=== PATIENT | male | born 1960 | race American Indian/Alaskan Native ===

== ENCOUNTER 2017-08-15 15:55 | Emergency (ER) | payer BC ==
[2017-08-15 16:41] LABS: ABS Basophils 0.1 10^3/ul (0-0.2); ABS Eosinophils 0.1 10^3/ul (0-0.6); ABS Lymphocytes 0.1 10^3/ul (1.0-4.8); ABS Neutrophils 11.8 10^3/ul (1.5-7.7); ABS Nucleated RBC 0 10^3/ul; Eosinophil % 0.4 % (0-6); Hematocrit 43 % (42-52); Lymphocyte % 1.1 % (25-47); Mean Corpuscular HGB Conc 33 g/dl (31-36); Mean Corpuscular Hemoglobin 26 pg (27-31); Mean Corpuscular Volume 80 fL (80-94); Mean Platelet Volume 9 um3 (7.4-10.4); Nucleated Red Blood Cells % 0.1; Platelet Count 201 10^3/ul (150-450); Red Blood Count 5.39 10^6/ul (4.0-5.4); Red Cell Distribution Width 15 % (10.5-15); White Blood Count 13.1 10^3/ul (3.5-10.8)
[2017-08-15 16:56] LABS: EGFR Non-African American 49.8 (>60)
[2017-08-15] MEDS ORDERED: NS 0.9% 1000 ML*IV.FLUID IV ONE (19:25)
[2017-08-15] MEDS ORDERED: Levofloxacin 750 MG IVPREMIX(* 750 MG/150 ML BAG IVPB ONE (19:28)
[2017-08-15] MEDS ORDERED: Acetaminophen TAB* 325 MG PO ONE (19:29)
[2017-08-15] MEDS ORDERED: Albuterol/Ipratropium NEB.SOL* Albuterol 2.5 MG/Ipratropium 0.5 MG 3 ML INH ONE (19:29)
[2017-08-15] MEDS ORDERED: Potassium Chlor TAB* 20 MEQ TAB.ER PO ONE (19:30)
[2017-08-15] MEDS: Albuterol 2.5 MG/3 ML NEB.SOL* (0.083%) INH SCH (19:55)
[2017-08-15 20:08] LABS: INR 1.15 (0.77-1.02)
--- NOTE | 2017-08-15 20:41 | RAD ---
INDICATION: Shortness of breath. COMPARISON: Most recent comparison chest x-rays April 07, 2018 TECHNIQUE: Single AP portable view of the chest was obtained. FINDINGS: Image quality is compromised due to the relative inferiority of a portable chest x-ray. The heart and mediastinum exhibit normal size and contour. There is a mild degree of peribronchial cuffing. The lungs are grossly clear. There is no evidence of a large pleural effusion. Visualized bones are normal for the patient's age. IMPRESSION: Peribronchial cuffing could BE seen in the setting of viral pneumonia or inflammatory lung disease.
[2017-08-15 21:31] VITALS: BP 107/58
--- NOTE | 2017-08-15 21:41 | ED ---
Sandor Lorenzo Thomas, scribed for Mike Stoddard MD on 08/15/17 at 1942 . Influenza-Like Illness - HPI Summary HPI Summary: The patient is a 57 year old male complaining of chills that began today at 11: 00. He has been dealing with nasal congestion for the last few days. The patient denies shortness of breath and loss of consciousness. Past medical history includes asthma and he is on Flovent. - History of Current Complaint Chief Complaint: EDDizziness Time Seen by Provider: 08/15/17 19:12 Hx Obtained From: Patient Onset/Duration: Lasting Hours - onset of chills today, Still Present Severity: Moderate Associated Signs & Symptoms: Fever, Nasal Congestion Related Hx: Possible Flu/Infectious Exposure - Allergy/Home Medications Allergies/Adverse Reactions: Allergies Allergy/AdvReac Type Severity Reaction Status Date / Time peanut oil Allergy Severe Anaphylatic Verified 08/15/17 19:39 Shock PMH/Surg Hx/FS Hx/Imm Hx Cardiovascular History: Reports: Hx Hypertension Respiratory History: Reports: Hx Asthma Infectious Disease History: No Infectious Disease History: Denies: History Other Infectious Disease, Traveled Outside the in Last 30 Days - Family History Known Family History: Positive: Hypertension Negative: Cardiac Disease, Diabetes - Social History Alcohol Use: Occasionally Hx Substance Use: No Substance Use Type: Reports: None Hx Tobacco Use: No Smoking Status (MU): Never Smoked Tobacco Have You Smoked in the Last Year: No Review of Systems Positive: Fever, Chills Positive: Nasal Discharge Neurological: Negative - LOC All Other Systems Reviewed And Are Negative: Yes Physical Exam - Summary Physical Exam Summary: VITAL SIGNS: Reviewed. GENERAL: Patient is a well-developed and nourished MALE who is lying comfortable in the stretcher. Patient is not in any acute respiratory distress. HEAD AND FACE: No signs of trauma. No ecchymosis, hematomas or skull depressions. No sinus tenderness. EYES: PERRLA, EOMI x 2, No injected conjunctiva, no nystagmus. EARS: Hearing grossly intact. Ear canals and tympanic membranes are within normal limits. MOUTH: Oropharynx within normal limits. NECK: Supple, trachea is midline, no adenopathy, no JVD, no carotid bruit, no c- spine tenderness, neck with full ROM. CHEST: Symmetric, no tenderness at palpation LUNGS: Decreased breaths sounds bilaterally. CVS: Regular rate and rhythm, S1 and S2 present, no murmurs or gallops appreciated. ABDOMEN: Soft, non-tender. No signs of distention. No rebound no guarding, and no masses palpated. Bowel sounds are normal. EXTREMITIES: FROM in all major joints, no edema, no cyanosis or clubbing. NEURO: Alert and oriented x 3. No acute neurological deficits. Speech is normal and follows commands. SKIN: Dry and warm Triage Information Reviewed: Yes Vital Signs On Initial Exam: Initial Vitals Temp Pulse Resp BP Pulse Ox 100.2 F 106 16 134/76 92 08/15/17 15:59 08/15/17 15:59 08/15/17 15:59 08/15/17 15:59 08/15/17 15:59 Vital Signs Reviewed: Yes Diagnostics - Vital Signs Vital Signs Temp Pulse Resp BP Pulse Ox 08/15/17 19:30 89 19 136/80 92 08/15/17 19:00 86 17 140/75 92 08/15/17 18:30 88 16 122/79 93 08/15/17 18:23 89 16 93 08/15/17 18:21 118/76 08/15/17 18:01 98.4 F 96 15 119/66 94 08/15/17 15:59 100.2 F 106 16 134/76 92 - Laboratory Lab Results: Lab Results 08/15/17 08/15/17 Range/Units 16:30 16:30 WBC 13.1 H (3.5-10.8) 10^3/ul RBC 5.39 (4.0-5.4) 10^6/ul Hgb 14.0 (14.0-18.0) g/dl Hct 43 (42-52) % MCV 80 (80-94) fL MCH 26 L (27-31) pg MCHC 33 (31-36) g/dl RDW 15 (10.5-15) % Plt Count 201 (150-450) 10^3/ul MPV 9 (7.4-10.4) um3 Neut % (Auto) 89.6 H (38-83) % Lymph % (Auto) 1.1 L (25-47) % [place] % (Auto) 7.9 (1-9) % Eos % (Auto) 0.4 (0-6) % Baso % (Auto) 1.0 (0-2) % Absolute Neuts (auto) 11.8 H (1.5-7.7) 10^3/ul Absolute Lymphs (auto) 0.1 L (1.0-4.8) 10^3/ul Absolute Monos (auto) 1.0 H (0-0.8) 10^3/ul Absolute Eos (auto) 0.1 (0-0.6) 10^3/ul Absolute Basos (auto) 0.1 (0-0.2) 10^3/ul Absolute Nucleated RBC 0 10^3/ul Nucleated RBC % 0.1 Sodium 138 (133-145) mmol/L Potassium 3.2 L (3.5-5.0) mmol/L Chloride 103 (101-111) mmol/L Carbon Dioxide 29 (22-32) mmol/L Anion Gap 6 (2-11) mmol/L BUN 16 (6-24) mg/dL Creatinine 1.45 H (0.67-1.17) mg/dL Est GFR ( Amer) 64.1 (>60) Est GFR (Non-Af Amer) 49.8 (>60) BUN/Creatinine Ratio 11.0 (8-20) Glucose 108 H (70-100) mg/dL Calcium 9.0 (8.6-10.3) mg/dL Total Bilirubin 0.80 (0.2-1.0) mg/dL AST 22 (13-39) U/L ALT 17 (7-52) U/L Alkaline Phosphatase 62 (34-104) U/L Troponin I 0.01 (<0.04) ng/mL Total Protein 7.5 (6.4-8.9) g/dL Albumin 4.1 (3.2-5.2) g/dL Globulin 3.4 (2-4) g/dL Albumin/Globulin Ratio 1.2 (1-3) Result Diagrams: 08/15/17 16:30 08/15/17 16:30 Lab Statement: Any lab studies that have been ordered have been reviewed, and results considered in the medical decision making process. - Radiology CXR Xray Interpretation: No Acute Changes - Peribronchial cuffing could BE seen in the setting of viral pneumonia or inflammatory lung disease. Dr. Stoddard has reviewed this report. Radiology Interpretation Completed By: Radiologist - EKG 16:01 Cardiac Rate: NL EKG Rhythm: Sinus Rhythm EKG Interpretation: Normal intervals, normal axis, no ischemic change. Flu Symptom Course/Dx - Course Assessment/Plan: The patient is a 57 year old male complaining of chills, nasal congestion, and fever. Bloodwork, EKG, and CXR were obtained. Influenza A and B are negative. The patient is diagnosed with asthma, viral syndrome, and bronchitis. Patient will be discharged home with primary care follow up. Patient is prescribed Levaquin and prednisone. - Diagnoses Provider Diagnoses: Asthma, Viral syndrome, Bronchitis Discharge - Discharge Plan Condition: Stable Disposition: HOME Prescriptions: Levofloxacin TAB* [Levaquin TAB*] 750 mg PO DAILY #7 tab predniSONE TAB* [Deltasone TAB*] 40 mg PO DAILY #10 tab Patient Education Materials: Asthma (ED), Acute Bronchitis (ED), Viral Syndrome (ED) Referrals: [facility] [place] [facility] [place]Outside] - 3 Days Additional Instructions: Follow up with your primary care physician in three days. If you do not have a primary care provider, you can use the [facility] [place] service to find one and make an appointment. Return to the emergency department for any new or worsening symptoms. The documentation as recorded by the Sandor olsen Thomas accurately reflects the service I personally performed and the decisions made by , Mike Stoddard MD.
[2017-08-15 21:44] LABS: Urine Appearance Cloudy; Urine Blood Negative (Negative); Urine Color Yellow; Urine Ketones Negative (Negative); Urine Protein Negative (Negative); Urine Specific Gravity 1.014 (1.010-1.030); Urine Urobilinogen Negative (Negative)
== END 2017-08-15 21:43 | disposition home or self-care (01) ==
LOC: ED 15:55
DX: J45.909 Unspecified asthma, uncomplicated (principal)
CPT/HCPCS: 36415; 71045; 80053; 81003; 83605; 84484; 85025; 85610; 87040; 87502; 93005; 94640; 96360; 96374; 99283; A9270-GY

== ENCOUNTER 2018-12-22 10:52 | Emergency (ER) | payer BC ==
[2018-12-22 11:38] VITALS: BP 139/91
--- NOTE | 2018-12-22 12:21 | UC ---
Throat Pain/Nasal Delio HPI - HPI Summary HPI Summary: 58 y/o male presents to the urgent care c/o sore throat since this morning. Pt is concerned about strep since he had it before. Pt states mild nasal congestion w/ clear nasal discharge, Pain w/ swallowing is 4/10. Pt denies fever , cough, SOB, chest pain, abdominal pain, N/V/D, YANES. He has not taken any medications to alleviate symptoms. - History of Current Complaint Chief Complaint: UCGeneralIllness Stated Complaint: SORE THROAT Time Seen by Provider: 12/22/18 12:18 Hx Obtained From: Patient Onset/Duration: Gradual Onset, Lasting Days - today, Still Present Severity: Mild Pain Intensity: 4 - sore throat Pain Scale Used: 0-10 Numeric Cough: None Associated Signs & Symptoms: Positive: Nasal Discharge - clear. Negative: Sinus Discomfort, Fever Related History: Seasonal Allergies - Epiglottits Risk Factors Epiglottis Risk Factors: Negative - Allergies/Home Medications Allergies/Adverse Reactions: Allergies Allergy/AdvReac Type Severity Reaction Status Date / Time peanut oil Allergy Severe Anaphylatic Verified 12/22/18 11:38 Shock Home Medications: Home Medications Amlodipine Besylate [Norvasc] 1 tab PO DAILY 12/22/18 [History Confirmed ] Hydrochlorothiazide TAB* [Hydrodiuril TAB*] 1 tab PO DAILY 12/22/18 [History Confirmed 12/22/18] Lisinopril 1 tab PO DAILY 12/22/18 [History Confirmed 12/22/18] PMH/Surg Hx/FS Hx/Imm Hx Previously Healthy: Yes Cardiovascular History: Hypertension Respiratory History: Asthma - Surgical History Surgical History: None - Family History Known Family History: Positive: Hypertension, Respiratory Disease - asthma Negative: Cardiac Disease, Diabetes - Social History Occupation: Employed Full-time Lives: With Family Alcohol Use: None Substance Use Type: None Smoking Status (MU): Never Smoked Tobacco Have You Smoked in the Last Year: No Review of Systems All Other Systems Reviewed And Are Negative: Yes Constitutional: Positive: Negative Skin: Positive: Negative Eyes: Positive: Negative ENT: Positive: Sore Throat, Nasal Discharge - clear, Sinus Congestion Respiratory: Positive: Negative Cardiovascular: Positive: Negative Gastrointestinal: Positive: Negative Genitourinary: Positive: Negative Motor: Positive: Negative Neurovascular: Positive: Negative Musculoskeletal: Positive: Negative Neurological: Positive: Negative Psychological: Positive: Negative Is Patient Immunocompromised?: No Physical Exam - Summary Physical Exam Summary: VITAL SIGNS: Reviewed. GENERAL: Patient is a well developed and nourished male who is sitting comfortable in the examining table. Patient is not in any acute respiratory distress. HEAD AND FACE: No signs of trauma. No ecchymosis, hematomas or skull depressions. No sinus tenderness. EYES: PERRLA, EOMI x 2, No injected conjunctiva, no nystagmus. No photophobia. EARS: Hearing grossly intact. Ear canals and tympanic membranes are within normal limits. MOUTH: Positive pharynx with mild erythema, no exudates, No B/L tonsillar enlargement , no exudate. Uvula in midline. edematous nasal mucosa w/ clear nasal discharge, clear PND NECK: Supple, trachea is midline, Positive anterior cervical lymphadenopathy, no JVD, no carotid bruit, no c-spine tenderness, neck with full ROM. No meningeal signs, no Kernig's or brudzinskis signs. CHEST: Symmetric, no tenderness at palpation LUNGS: Clear to auscultation bilaterally. No wheezing or crackles. CVS: Regular rate and rhythm, S1 and S2 present, no murmurs or gallops appreciated. ABDOMEN: Soft, non-tender. No signs of distention. No rebound no guarding, and no masses palpated. Bowel sounds are normal. EXTREMITIES: FROM in all major joints, no edema, no cyanosis or clubbing. NEURO: Alert and oriented x 3. No acute neurological deficits. Pt follows commands. SKIN: Dry and warm Triage Information Reviewed: Yes Vital Signs: Initial Vital Signs Temp 98 F 12/22/18 11:36 Pulse 88 12/22/18 11:36 Resp 20 12/22/18 11:36 BP 139/91 12/22/18 11:36 Pulse Ox 100 12/22/18 11:36 Throat Pain/Nasal Course/Dx - Course Course Of Treatment: 58 y/o male presents to the urgent care c/o sore throat since this morning. Pt is concerned about strep since he had it before. Pt states mild nasal congestion w/ clear nasal discharge, Pain w/ swallowing is 4/10. Pt denies fever , cough, SOB, chest pain, abdominal pain, N/V/D, YANES. He has not taken any medications to alleviate symptoms. Pt w/ pharyngitis on examination. Rapid strep ordered, result: negative. Viral pharyngitis.Pt Rx ibuprofen PO to alleviates symptoms of pain and swelling. Advised on hand washing to avoid spreading. Pt advised to rest, eat well and avoid strenuous exercise. If symptoms do not improve or worsen advised to return to the urgent care or f/u with PCP for further evaluation and treatment. Your BP is elevated today. please decrease salt in your diet, monitor BP and if it continues to be elevated please f/u with your PCP for further management. D/C instructions explained. Pt understood and agreed w/ plan of care. - Differential Dx/Diagnosis Differential Diagnosis/HQI/PQRI: Laryngitis, Mononucleosis, Otitis Media, Pharyngitis, Tonsillitis Provider Diagnosis: Acute viral pharyngitis, Uncontrolled hypertension Discharge - Sign-Out/Discharge Documenting (check all that apply): Patient Departure - D/C home All imaging exams completed and their final reports reviewed: No Studies - Discharge Plan Condition: Stable Disposition: HOME Patient Education Materials: Pharyngitis (ED) Forms: *Work Release Referrals: [facility] [place] [facility] [Outside] - 3 Days Additional Instructions: 1-Please take ibuprofen PO q6-8hrs prn as instructed after meals to alleviate pain and swelling. Increase fluid intake, eat well, rest and avoid strenuous exercise 2-If symptoms do not improve or worsen please return to the urgent care or f/u with your PCP for further evaluation and treatment. 3- Your BP is elevated today. please decrease salt in your diet, monitor BP and if it continues to be elevated please f/u with your PCP for further management. - Billing Disposition and Condition Condition: STABLE Disposition: Home
== END 2018-12-22 13:08 | disposition home or self-care (01) ==
LOC: UCEAST 10:52
DX: J02.8 Acute pharyngitis due to other specified organisms (principal); I10 Essential (primary) hypertension
CPT/HCPCS: 87651; 99211; G0463

== ENCOUNTER 2018-12-25 17:23 | Emergency (ER) | payer BC ==
[2018-12-25 18:04] VITALS: BP 141/90
[2018-12-25] MEDS ORDERED: Ipratropium 0.5MG/2.5ML NEB* 0.5 MG/2.5 ML NEB.SOLN INH ONE (18:46)
[2018-12-25] MEDS ORDERED: Albuterol 2.5 MG/3 ML NEB.SOL* (0.083%) INH ONE (18:46)
--- NOTE | 2018-12-25 18:47 | UC ---
Respiratory Complaint HPI - HPI Summary HPI Summary: 58 yo male with hx of asthma was seen at [place] 3 days ago diagnosed with pneumonia started on zithromax (today is day three) still with cough and dyspnea desires CXR no fever no CP - History of Current Complaint Chief Complaint: UCRespiratory Stated Complaint: WANTS CHEST X-RAY Time Seen by Provider: 12/25/18 18:12 Hx Obtained From: Patient Onset/Duration: Gradual Onset, Lasting Days Severity Initially: Mild Severity Currently: Moderate Pain Intensity: 0 Pain Scale Used: 0-10 Numeric Aggravating Factors: Exertion, Deep Breaths Alleviating Factors: Nothing Associated Signs And Symptoms: Positive: Dyspnea, Chills - Allergies/Home Medications Allergies/Adverse Reactions: Allergies Allergy/AdvReac Type Severity Reaction Status Date / Time peanut oil Allergy Severe Anaphylatic Verified 12/25/18 18:04 Shock Home Medications: Home Medications Aspirin TAB* [Aspirin 325 MG TAB*] 325 mg PO DAILY 12/25/18 [History Confirmed 12/25/18] Azithromycin TAB* [Zithromax TAB (Z-BRIANNE) 250 mg #6 tabs] 2 tab PO .TODAY, THEN 1 DAILY 12/25/18 [History Confirmed 12/25/18] Ibuprofen TAB* [Motrin TAB* 800 MG] 800 mg PO Q6H PRN 12/25/18 [History Confirmed 12/25/18] PMH/Surg Hx/FS Hx/Imm Hx Previously Healthy: Yes Endocrine History: Dyslipidemia Cardiovascular History: Cardiac Disease, Hypertension Respiratory History: Asthma, Pneumonia - Surgical History Surgical History: None - Family History Known Family History: Positive: Hypertension, Respiratory Disease - asthma Negative: Cardiac Disease, Diabetes - Social History Alcohol Use: None Substance Use Type: None Smoking Status (MU): Never Smoked Tobacco Have You Smoked in the Last Year: No Review of Systems All Other Systems Reviewed And Are Negative: Yes Constitutional: Positive: Chills, Fatigue Skin: Positive: Negative Eyes: Positive: Negative ENT: Positive: Negative Respiratory: Positive: Shortness Of Breath, Cough Cardiovascular: Positive: Negative Gastrointestinal: Positive: Negative Genitourinary: Positive: Negative Motor: Positive: Negative Neurovascular: Positive: Negative Musculoskeletal: Positive: Negative Neurological: Positive: Negative Psychological: Positive: Negative Physical Exam Triage Information Reviewed: Yes Appearance: Well-Appearing, No Pain Distress, Well-Nourished Vital Signs: Initial Vital Signs Temp 98.0 F 12/25/18 17:58 Pulse 90 12/25/18 17:58 Resp 24 12/25/18 17:58 BP 141/90 12/25/18 17:58 Pulse Ox 92 12/25/18 17:58 Vital Signs Reviewed: Yes Eyes: Positive: Conjunctiva Clear ENT: Positive: Hearing grossly normal. Negative: Nasal congestion, Nasal drainage, Trismus, Muffled voice, Hoarse voice, Uvula midline Neck: Positive: Supple, Nontender, No Lymphadenopathy Respiratory: Positive: Lungs clear, No respiratory distress, No accessory muscle use Cardiovascular: Positive: RRR, No Murmur Musculoskeletal: Positive: No Edema Neurological: Positive: Alert Psychological Exam: Normal Skin Exam: Normal Diagnostics - Radiology No standard instances Radiology Interpretation Completed By: ED Physician Summary of Radiographic Findings: LLL atelectasis Re-Evaluation - Re-Evaluation First Eval Re-Evaluation Time: 19:33 Change: Improved - lungs clear PEFR 250 (pre was 175), pulse ox 95% Respiratory Course/Dx - Differential Dx/Diagnosis Provider Diagnosis: Bronchitis Discharge - Sign-Out/Discharge Documenting (check all that apply): Patient Departure All imaging exams completed and their final reports reviewed: No - Discharge Plan Condition: Improved Disposition: HOME Patient Education Materials: Bronchospasm (ED) Additional Instructions: the official xr reading is pending your peak flow is lower than we would like to see I suggest you see your MD later this week you may need formal pulmonary function tests TO ER FOR NEW OR WORSENING SYMPTOMS - Billing Disposition and Condition Condition: IMPROVED Disposition: Home
[2018-12-25] MEDS ORDERED: predniSONE TAB* 20 MG PO ONE (19:36)
[2018-12-25] MEDS ORDERED: Albuterol HFA INHALER* 8 gm MDI INH ONE (19:36)
--- NOTE | 2018-12-26 12:31 | UC ---
- Progress Note Progress Note: chest xray report : IMPRESSION: NO EVIDENCE FOR ACTIVE CARDIOPULMONARY DISEASE. Course/Dx - Diagnoses Provider Diagnoses: Bronchitis Discharge - Sign-Out/Discharge Documenting (check all that apply): Patient Departure All imaging exams completed and their final reports reviewed: Yes - Discharge Plan Condition: Improved Disposition: HOME Prescriptions: predniSONE [Deltasone 20 MG TAB] 40 mg PO DAILY #10 tab Patient Education Materials: Bronchospasm (ED) Forms: *Work Release Referrals: No Primary Care Phys,NOPCP [Primary Care Provider] - Additional Instructions: the official xr reading is pending your peak flow is lower than we would like to see I suggest you see your MD later this week you may need formal pulmonary function tests TO ER FOR NEW OR WORSENING SYMPTOMS - Billing Disposition and Condition Condition: IMPROVED Disposition: Home
== END 2018-12-25 19:57 | disposition home or self-care (01) ==
LOC: UCEAST 17:23
DX: J40 Bronchitis, not specified as acute or chronic (principal); I10 Essential (primary) hypertension
CPT/HCPCS: 71046; 99212; A9270-GY; G0463; J7512